=== PATIENT | female | born 1965 | race Caucasian/White ===

== ENCOUNTER 2018-05-21 22:57 | Inpatient (IN) | payer OTHER ==
--- NOTE | 2018-05-21 23:57 | EKG REPORT ---
SEVERITY:- BORDERLINE ECG - SINUS TACHYCARDIA BORDERLINE T WAVE ABNORMALITIES : Confirmed by: Jose M Pinedo 21-May-2018 23:56:58
[2018-05-22] MEDS ORDERED: NORMAL SALINE 1000 ML 1,000 ML IV ONE (00:36)
--- NOTE | 2018-05-22 00:38 | ER Document Report ---
ED General - General Chief Complaint: Shortness Of Breath Stated Complaint: DIFFICULTY BREATHING/URINARY ISSUE Time Seen by Provider: 05/22/18 00:21 Notes: Patient is a 53-year-old female with COPD, diabetes, hypertension that presents to the emergency department for chief complaint of fever, chills, and concern for UTI. Patient states that she is visiting from out of town, and states starting having chills, sweats and subjective fever, which she usually gets when she has a urinary tract infection, she states she is been septic before, r equired hospitalization, in the past. She is on suppressive medication for UTIs, which she states has reduce the number of severe infection she gets, but she still gets some. She has had urinary frequency, but denies any dysuria. She denies having any abdominal pain, has had mild nausea without vomiting. She is chronically short of breath and on oxygen 2 L 24 hours a day for her COPD, but her shortness of breath is not worsened anytime recently. Denies having any cough, chest pain. Past Medical History: COPD, hypertension, diabetes mellitus Past Surgical History: Kidney surgery, hysterectomy, , cholecystectomy Social History: Former smoker, denies alcohol or drug use. Family History: Reviewed and noncontributory for presenting illness Allergies: Reviewed, see documented allergy list. REVIEW OF SYSTEMS: Other than noted above, the 12 point review of systems was reviewed with the patient and were negative, all pertinent findings are included in the HPI. PHYSICAL EXAMINATION: Vital signs reviewed, nursing noted reviewed. GENERAL: Obese female, appears uncomfortable HEAD: Atraumatic, normocephalic. EYES: Eyes appear normal, extraocular movements intact, sclera anicteric, conjunctiva are normal. ENT: nares patent, oropharynx clear without exudates. Moist mucous membranes. NECK: Normal range of motion, supple without lymphadenopathy LUNGS: Diminished lung sounds, no wheezing, rhonchi or acute respiratory distress. HEART: Heart rate tachycardic, regular rhythm ABDOMEN: Soft, obese, nontender, normoactive bowel sounds. No rebound, guarding, or rigidity. No masses appreciated. EXTREMITIES: Nontender, good range of motion, trace pedal edema bilaterally NEUROLOGICAL: No focal neurological deficits. Moves all extremities spontaneously Motor and sensory grossly intact on exam. PSYCH: Normal mood, normal affect. SKIN: Warm, Dry, normal turgor, no rashes or lesions noted on exposed skin TRAVEL OUTSIDE OF THE [place] IN LAST 30 DAYS: No - Related Data Allergies/Adverse Reactions: No Known Allergies Allergy (Verified 05/22/18 01:25) Past Medical History - Social History Smoking Status: Former Smoker Family History: Reviewed & Not Pertinent Physical Exam - Vital signs Vitals: Temp Pulse Resp BP Pulse Ox 100.3 F 131 H 24 H 132/63 H 95 05/21/18 23:06 05/21/18 23:06 05/21/18 23:06 05/21/18 23:06 05/21/18 23:06 Course - Re-evaluation Re-evalutation: Patient seen and examined vital signs reviewed. Laboratory data and imaging were ordered as appropriate for the patient's presenting symptoms and complaint, with consideration of any critical or life threatening conditions that may be associated with their obtained history and exam as noted above. Patient was treated with IV fluid bolusing, IV Zosyn Results were reviewed when available and demonstrated mild leukocytosis, elevated lactic acid, and positive UA for urinary tract infection, chest x-ray was not convincing of pneumonia. Patient did meet severe sepsis criteria based on elevated lactic acid, tachycardia, and source of UTI. The patient was re-evaluated and was still tachycardic, additional IV fluid was ordered, patient's IV fluids were based off of ideal body weight, to obtain her 30 mL/kg bolus, given that she is morbidly obese. Evaluation was most consistent with sepsis secondary to urinary tract infection, tachycardia, leukocytosis Results were discussed with the patient at this point after careful consideration I feel that that patient should be admitted to the hospital. This was discussed with the patient that it is in the best interest for their care to be admitted for further evaluation and management. Patient agreed with this plan of care. A call was placed to the admitted physician, Dr. Alegre who graciously accepted the patient onto their service. *Note is created using voice recognition software and may contain spelling, s yntax or grammatical errors. Laboratory 05/22/18 05/22/18 05/22/18 00:30 00:30 00:30 WBC 10.9 H RBC 4.40 Hgb 12.6 Hct 38.3 MCV 87 MCH 28.7 MCHC 33.0 RDW 13.8 Plt Count 305 Seg Neutrophils % 78.8 H Lymphocytes % 14.5 Monocytes % 5.8 Eosinophils % 0.7 Basophils % 0.2 Absolute Neutrophils 8.6 H Absolute Lymphocytes 1.6 Absolute Monocytes 0.6 Absolute Eosinophils 0.1 Absolute Basophils 0.0 PT 14.0 INR 1.03 VBG pH VBG pCO2 VBG HCO3 VBG Base Excess Sodium 135.7 L Potassium 4.0 Chloride 97 L Carbon Dioxide 25 Anion Gap 14 BUN 13 Creatinine 0.77 Est GFR ( Amer) > 60 Est GFR (Non-Af Amer) > 60 Glucose 346 H POC Glucose Lactic Acid Calcium 10.0 Total Bilirubin 0.3 Direct Bilirubin 0.3 Neonat Total Bilirubin Not Reportable Neonat Direct Bilirubin Not Reportable Neonat Indirect Bili Not Reportable AST 41 H ALT 30 Alkaline Phosphatase 77 Total Protein 7.6 Albumin 4.3 Urine Color Urine Appearance Urine pH Ur Specific [place] Urine Protein Urine Glucose (UA) Urine Ketones Urine Blood Urine Nitrite Urine Bilirubin Urine Urobilinogen Ur Leukocyte Esterase Urine WBC (Auto) Urine RBC (Auto) Urine Bacteria (Auto) Squamous Epi Cells Auto Urine Ascorbic Acid 05/22/18 05/22/18 05/22/18 00:30 00:30 00:30 WBC RBC Hgb Hct MCV MCH MCHC RDW Plt Count Seg Neutrophils % Lymphocytes % Monocytes % Eosinophils % Basophils % Absolute Neutrophils Absolute Lymphocytes Absolute Monocytes Absolute Eosinophils Absolute Basophils PT INR VBG pH 7.40 VBG pCO2 38.6 VBG HCO3 23.4 VBG Base Excess -1.2 Sodium Potassium Chloride Carbon Dioxide Anion Gap BUN Creatinine Est GFR ( Amer) Est GFR (Non-Af Amer) Glucose POC Glucose Lactic Acid 4.0 H Calcium Total Bilirubin Direct Bilirubin Neonat Total Bilirubin Neonat Direct Bilirubin Neonat Indirect Bili AST ALT Alkaline Phosphatase Total Protein Albumin Urine Color YELLOW Urine Appearance SLIGHTLY-CLOUDY Urine pH 6.0 Ur Specific [place] 1.012 Urine Protein NEGATIVE Urine Glucose (UA) >=500 H Urine Ketones NEGATIVE Urine Blood MODERATE H Urine Nitrite NEGATIVE Urine Bilirubin NEGATIVE Urine Urobilinogen NEGATIVE Ur Leukocyte Esterase LARGE H Urine WBC (Auto) 145 Urine RBC (Auto) 19 Urine Bacteria (Auto) 1+ Squamous Epi Cells Auto 1 Urine Ascorbic Acid NEGATIVE 05/22/18 01:02 WBC RBC Hgb Hct MCV MCH MCHC RDW Plt Count Seg Neutrophils % Lymphocytes % Monocytes % Eosinophils % Basophils % Absolute Neutrophils Absolute Lymphocytes Absolute Monocytes Absolute Eosinophils Absolute Basophils PT INR VBG pH VBG pCO2 VBG HCO3 VBG Base Excess Sodium Potassium Chloride Carbon Dioxide Anion Gap BUN Creatinine Est GFR ( Amer) Est GFR (Non-Af Amer) Glucose POC Glucose 303 H Lactic Acid Calcium Total Bilirubin Direct Bilirubin Neonat Total Bilirubin Neonat Direct Bilirubin Neonat Indirect Bili AST ALT Alkaline Phosphatase Total Protein Albumin Urine Color Urine Appearance Urine pH Ur Specific [place] Urine Protein Urine Glucose (UA) Urine Ketones Urine Blood Urine Nitrite Urine Bilirubin Urine Urobilinogen Ur Leukocyte Esterase Urine WBC (Auto) Urine RBC (Auto) Urine Bacteria (Auto) Squamous Epi Cells Auto Urine Ascorbic Acid Chest X-Ray 05/22/18 00:25 IMPRESSION: No acute cardiopulmonary process copyright 2010 [employer]- All Rights Reserved - Vital Signs Vital signs: Temp Pulse Resp BP Pulse Ox 98.6 F 105 H 22 H 117/66 98 05/22/18 03:38 05/22/18 03:38 05/22/18 03:38 05/22/18 03:38 05/22/18 03:38 - Laboratory Result Diagrams: 05/22/18 00:30 05/22/18 00:30 Laboratory results interpreted by me: 05/22/18 05/22/18 05/22/18 00:30 00:30 00:30 WBC 10.9 H Seg Neutrophils % 78.8 H Absolute Neutrophils 8.6 H Sodium 135.7 L Chloride 97 L Glucose 346 H POC Glucose Lactic Acid 4.0 H AST 41 H Urine Glucose (UA) Urine Blood Ur Leukocyte Esterase 05/22/18 05/22/18 00:30 01:02 WBC Seg Neutrophils % Absolute Neutrophils Sodium Chloride Glucose POC Glucose 303 H Lactic Acid AST Urine Glucose (UA) >=500 H Urine Blood MODERATE H Ur Leukocyte Esterase LARGE H - EKG Interpretation by Me Additional EKG results interpreted by me: EKG demonstrates sinus tachycardia with a ventricular rate of 127 bpm, normal axis, normal intervals, no evidence of acute ischemia on this EKG. Critical Care Note - Critical Care Note Total time excluding time spent on procedures (mins): 38 Comments: Critical care time 38 minutes exclusive from separate billable procedures for a patient requiring complex medical decision making, and high potential for clinical deterioration. In a patient with severe sepsis, requiring fluid resuscitation, close monitoring and admission to the hospital. Time spent obtai maximilian history from patient or surrogate, discussions with consultants, development of treatment plan with patient or surrogate, evaluation of patient's response to treatment, examination of patient, ordering and performing treatments and interventions, ordering and review of laboratory studies, re-ev aluation of patient's condition, ordering and review of radiographic studies and review of old charts Discharge - Discharge Clinical Impression: Severe sepsis, Lactic acidosis UTI (urinary tract infection) Qualifiers: Urinary tract infection type: acute pyelonephritis Qualified Code(s): N10 - Acute pyelonephritis Leukocytosis Qualifiers: Leukocytosis type: unspecified Qualified Code(s): D72.829 - Elevated white blood cell count, unspecified Condition: Stable Disposition: ADMITTED INPATIENT Admitting Provider: Hospitalist - Dr. Alegre Unit Admitted: Telemetry
[2018-05-22 00:49] LABS: ABSOLUTE EOSINOPHILS # (AUTO) 0.1 10^3/uL (0.0-0.6); ABSOLUTE LYMPHOCYTES (AUTO) 1.6 10^3/uL (0.5-4.7); ABSOLUTE MONOCYTES (AUTO) 0.6 10^3/uL (0.1-1.4); ABSOLUTE NEUT (AUTO) 8.6 10^3/uL (1.7-8.2); BASOPHILS % (AUTO) 0.2 % (0-2); EOSINOPHILS % (AUTO) 0.7 % (0-6); HEMATOCRIT 38.3 % (36.0-47.0); HEMOGLOBIN 12.6 g/dL (12.0-15.5); LYMPHOCYTES % (AUTO) 14.5 % (13-45); MEAN CORPUSCULAR HEMOGLOBIN 28.7 pg (27.0-33.4); MEAN CORPUSCULAR VOLUME 87 fl (80-97); MONOCYTES % (AUTO) 5.8 % (3-13); PLATELET COUNT 305 10^3/uL (150-450); RED CELL DISTRIBUTION WIDTH 13.8 % (11.5-14.0); SEGMENTED NEUTROPHILS % (AUTO) 78.8 % (42-78); TOTAL CELLS COUNTED % (AUTO) 100 %; VENOUS BLOOD BASE EXCESS -1.2 mmol/L; VENOUS BLOOD HCO3 23.4 mmol/L (20-32); VENOUS BLOOD PCO2 38.6 mmHg (35-63); VENOUS BLOOD PH 7.4 (7.30-7.42); WHITE BLOOD COUNT 10.9 10^3/uL (4.0-10.5)
[2018-05-22 00:55] LABS: INTERNATIONAL RATION (INR) 1.03
[2018-05-22 00:58] LABS: APPEARANCE,URINE SLIGHTLY-CLOUDY; BILIRUBIN,URINE NEGATIVE (NEGATIVE); COLOR,URINE YELLOW; GLUCOSE, URINE >=500 mg/dL (NEGATIVE); KETONES,URINE NEGATIVE (NEGATIVE); LEUKOCYTE ESTERASE,URINE LARGE (NEGATIVE); NITRITE,URINE NEGATIVE (NEGATIVE); PROTEIN,URINE NEGATIVE (NEGATIVE); URINE SPECIFIC GRAVITY 1.012; UROBILINOGEN,URINE NEGATIVE mg/dL (<2.0)
[2018-05-22 01:05] LABS: ALANINE AMINOTRANSFERASE 30 U/L (9-52); ALBUMIN 4.3 g/dL (3.5-5.0); ALKALINE PHOSPHATASE 77 U/L (38-126); ANION GAP 14 (5-19); ASPARTATE AMINO TRANSFERASE 41 U/L (14-36); BILIRUBIN,DIRECT 0.3 mg/dL (0.0-0.4); BILIRUBIN,TOTAL 0.3 mg/dL (0.2-1.3); BLOOD UREA NITROGEN 13 mg/dL (7-20); CARBON DIOXIDE 25 mmol/L (22-30); CHLORIDE 97 mmol/L (98-107); GLUCOSE 346 mg/dL (75-110); SODIUM 135.7 mmol/L (137-145); TOTAL PROTEIN 7.6 g/dL (6.3-8.2)
--- NOTE | 2018-05-22 01:06 | RADIOLOGY REPORT (SQ) ---
EXAM DESCRIPTION: XR CHEST 1 VIEW COMPLETED DATE/TME: 05/22/2018 00:25 CLINICAL HISTORY: 53 years, Female, SHORT OF BREATH, TACHYCARDIA COMPARISON: None. NUMBER OF VIEWS: 1 TECHNIQUE: Portable chest LIMITATIONS: None. FINDINGS: The heart size is normal. Osteopenia. Mild atheromatous change thoracic aorta. No pneumothorax. Lungs are clear IMPRESSION: No acute cardiopulmonary process copyright 2010 [employer]- All Rights Reserved
[2018-05-22] MEDS ORDERED: RINGERS SOLUTION,LACTATED 1,000 ML IV ONE ×2 (01:14)
[2018-05-22] MEDS ORDERED: PIPERACILLIN/TAZOBACTAM 3.375 GM VIAL IV ONE (01:15)
[2018-05-22] MEDS ORDERED: ACETAMINOPHEN 650 MG SUPP.RECT PR PRN (02:32)
[2018-05-22] MEDS ORDERED: MORPHINE SULFATE 10 MG/ML INJ IV PRN ×2 (02:32)
[2018-05-22] MEDS ORDERED: MAGNESIUM HYDROXIDE SUSP 30 ML UDCUP PO PRN (02:33)
[2018-05-22] MEDS ORDERED: ONDANSETRON 4 MG TAB.RAPDIS PO PRN (02:33)
[2018-05-22] MEDS ORDERED: POTASSI CL 20 MEQ/D5-1/2NS 1L 1,000 ML IV PRN (02:33)
[2018-05-22] MEDS ORDERED: MAG HYDROX/AL HYDROX/SIMETH SUSP 30 ML UDCUP PO PRN (02:33)
[2018-05-22] MEDS ORDERED: ONDANSETRON HCL INJ/PF 4 MG/2 ML SDV IV PRN (02:33)
[2018-05-22] MEDS ORDERED: POTASSI CL 20 MEQ/1/2NS 1L 20 MEQ/1,000 ML RTUINJ IV PRN (02:42)
[2018-05-22] MEDS ORDERED: ERTAPENEM SODIUM INJ 1 GM VIAL IV PRN (03:00)
[2018-05-22] MEDS ORDERED: ERTAPENEM SODIUM 1 GM in NORMAL SALINE 50 ML IV ONE (03:00)
[2018-05-22 04:10] LABS: FREE T3 3.01 pg/mL (2.77-5.27); FREE T4 (FREE THYROXINE) 1.06 ng/dL (0.78-2.19)
[2018-05-22] MEDS ORDERED: ERTAPENEM SODIUM INJ 1 GM VIAL ONE (04:56)
[2018-05-22] MEDS: HEPARIN SOD (PORCINE) 5,000 UNIT/ML 1 ML SYRINGE SUBCUT SCH ×3 (05:21→21:20)
--- NOTE | 2018-05-22 05:22 | PDOC H&P ---
History of Present Illness Admission Date/PCP: 05/22/18 01:47 Patient complains of: Fever and chills History of Present Illness: MIGUELITO LOVETT is a 53 year old female who presents the emergency room with a 1 day history of fever with chills associated with lower back pain. Subjective fever with chills has been severe and the lumbar (vague, nonradiating, bilateral right possibly worse than left) pressure-like pain which she rates as very severe. Both the pain and fever have been present since their onset on the day prior to admission. The symptoms began as a backache and low-grade fever in the early afternoon and progressively worsened gradually throughout the evening until she came to the emergency room. She admits numerous prior similar episodes some of which have required hospitalization and treatment for "sepsis", these usually occur with urinary tract or respiratory tract infections. She has not identified any aggravating or ameliorating factors for her fever or back pain. In the emergency room she was found to have a normal white count and be afebrile. Her urinalysis was suspect for a urinary tract infection and she was about to be discharged home when her serum lactic acid was reported is 4.0. The patient was then admitted to the hospital to be evaluated for possible sepsis at the insistence of the emergency room physician. Past Medical History Cardiac Medical History: Reports: Coronary Artery Disease, Myocardial Infarction, Hyperlipidema, Hypertension Denies: DVT, Pulmonary Embolism Pulmonary Medical History: Reports: Bronchitis, Pneumonia Denies: Chronic Obstructive Pulmonary Disease (COPD) EENT Medical History: Reports: None Neurological Medical History: Denies: Hemorrhagic CVA, Ischemic CVA, Seizures Endocrine Medical History: Reports: Diabetes Mellitus Type 2, Obesity Renal/ Medical History: Reports: Other - Frequent urinary tract infections, hx of horseshoe kidney (non-unified) Denies: Chronic Kidney Disease, Nephrolithiasis Malignancy Medical History: Reports: Other - Uterine cancer GI Medical History: Denies: Cirrhosis, Hepatitis Musculoskeltal Medical History: Denies: Arthritis, Gout Skin Medical History: Denies: Eczema, Psoriasis Psychiatric Medical History: Denies: Alcohol Dependency, Substance Abuse, Tobacco Dependency Traumatic Medical History: Reports: None Hematology: Denies: Anemia, Bleeding Tendencies Infectious Medical History: Reports: None Past Surgical History Past Surgical History: Reports: Section, Cholecystectomy, Hysterectomy Social History Smoking Status: Former Smoker - Advance Directive Resuscitation Status: Full Code Surrogate healthcare decision maker:: Hilda Cordova Family History Family History: Hypertension, Malignancy Parental Family History Reviewed: Yes Children Family History Reviewed: No Sibling(s) Family History Reviewed.: Yes Medication/Allergy Allergies/Adverse Reactions: No Known Allergies Allergy (Verified 05/22/18 01:25) Review of Systems Constitutional: PRESENT: as per HPI, chills, fever(s) Eyes: ABSENT: visual disturbances, other - Ocular pain Ears: ABSENT: hearing changes, other - Ear pain Nose, Mouth, and Throat: ABSENT: mouth pain, sore throat Cardiovascular: ABSENT: chest pain, dyspnea on exertion, orthropnea, palpitations Respiratory: ABSENT: cough, dyspnea Gastrointestinal: ABSENT: abdominal pain, constipation, diarrhea, nausea, vomiting Genitourinary: PRESENT: as per HPI, other - Flank pain, foul-smelling urine. ABSENT: dysuria, hematuria Musculoskeletal: PRESENT: as per HPI, back pain. ABSENT: deformity, joint swelling Integumentary: ABSENT: pruritus, rash Neurological: ABSENT: confusion, convulsions, memory loss, syncope, vertigo Psychiatric: ABSENT: anxiety, depression Endocrine: ABSENT: cold intolerance, heat intolerance Hematologic/Lymphatic: ABSENT: easy bleeding, easy bruising Physical Exam Vital Signs: Temp Pulse Resp BP Pulse Ox 98.4 F 131 H 19 134/67 H 97 05/22/18 00:40 05/21/18 23:06 05/22/18 02:01 05/22/18 02:01 05/22/18 02:01 Intake & Output 05/20/18 05/21/18 05/22/18 23:59 23:59 23:59 Intake Total 1000 Balance 1000 Weight 119.8 kg General appearance: PRESENT: no acute distress, cooperative, morbidly obese Head exam: PRESENT: atraumatic, normocephalic Eye exam: PRESENT: EOMI. ABSENT: conjunctival injection, scleral icterus Ear exam: PRESENT: normal external ear exam. ABSENT: bleeding, drainage Mouth exam: PRESENT: dry mucosa, neck supple Neck exam: ABSENT: thyromegaly, tracheal deviation Respiratory exam: PRESENT: clear to auscultation radha, symmetrical, unlabored Cardiovascular exam: PRESENT: RRR. ABSENT: clicks, gallop, rubs Pulses: PRESENT: normal radial pulses, normal dorsalis pedis pul Vascular exam: PRESENT: normal capillary refill. ABSENT: pallor GI/Abdominal exam: PRESENT: normal bowel sounds, soft Rectal exam: PRESENT: deferred Extremities exam: ABSENT: joint swelling, pedal edema Musculoskeletal exam: ABSENT: deformity, dislocation, tenderness Neurological exam: PRESENT: alert, oriented to person, oriented to place, oriented to time, oriented to situation, CN II-XII grossly intact. ABSENT: motor sensory deficit Psychiatric exam: PRESENT: appropriate affect, normal mood Skin exam: PRESENT: dry, intact, warm. ABSENT: jaundice, pallor, rash, urticaria Results Laboratory Results: 05/22/18 00:30 05/22/18 00:30 05/22/18 05/22/18 05/22/18 00:30 00:30 00:30 WBC 10.9 H RBC 4.40 Hgb 12.6 Hct 38.3 MCV 87 MCH 28.7 MCHC 33.0 RDW 13.8 Plt Count 305 Seg Neutrophils % 78.8 H Lymphocytes % 14.5 Monocytes % 5.8 Eosinophils % 0.7 Basophils % 0.2 Absolute Neutrophils 8.6 H Absolute Lymphocytes 1.6 Absolute Monocytes 0.6 Absolute Eosinophils 0.1 Absolute Basophils 0.0 VBG pH VBG pCO2 VBG HCO3 VBG Base Excess Sodium 135.7 L Potassium 4.0 Chloride 97 L Carbon Dioxide 25 Anion Gap 14 BUN 13 Creatinine 0.77 Est GFR ( Amer) > 60 Est GFR (Non-Af Amer) > 60 Glucose 346 H Lactic Acid 4.0 H Calcium 10.0 Total Bilirubin 0.3 AST 41 H ALT 30 Alkaline Phosphatase 77 Total Protein 7.6 Albumin 4.3 Urine Color Urine Appearance Urine pH Ur Specific [place] Urine Protein Urine Glucose (UA) Urine Ketones Urine Blood Urine Nitrite Ur Leukocyte Esterase Urine WBC (Auto) Urine RBC (Auto) 05/22/18 05/22/18 00:30 00:30 WBC RBC Hgb Hct MCV MCH MCHC RDW Plt Count Seg Neutrophils % Lymphocytes % Monocytes % Eosinophils % Basophils % Absolute Neutrophils Absolute Lymphocytes Absolute Monocytes Absolute Eosinophils Absolute Basophils VBG pH 7.40 VBG pCO2 38.6 VBG HCO3 23.4 VBG Base Excess -1.2 Sodium Potassium Chloride Carbon Dioxide Anion Gap BUN Creatinine Est GFR ( Amer) Est GFR (Non-Af Amer) Glucose Lactic Acid Calcium Total Bilirubin AST ALT Alkaline Phosphatase Total Protein Albumin Urine Color YELLOW Urine Appearance SLIGHTLY-CLOUDY Urine pH 6.0 Ur Specific [place] 1.012 Urine Protein NEGATIVE Urine Glucose (UA) >=500 H Urine Ketones NEGATIVE Urine Blood MODERATE H Urine Nitrite NEGATIVE Ur Leukocyte Esterase LARGE H Urine WBC (Auto) 145 Urine RBC (Auto) 19 Impressions: Chest X-Ray 05/22/18 00:25 IMPRESSION: No acute cardiopulmonary process copyright 2010 [employer]- All Rights Reserved Assessment & Plan - Diagnosis (1) SIRS (systemic inflammatory response syndrome) Is this a current diagnosis for this admission?: Yes Plan: With lactic acidosis, mild leukocytosis, minimal tachycardia and a possible urinary tract infection, SIRS criteria have been met. However this patient is very unlikely to have sepsis, so much so that at this point it can be affirmatively stated that sepsis has been ruled out. She will be treated with broad-spectrum antibiotics for her role urinary tract infection and serial lactic acid measurements will be obtained her vital signs will be observed and her overall clinical course will be monitored. Serial laboratory evaluations of her metabolic profile and CBC will be obtained. (2) UTI (urinary tract infection) Qualifiers: Urinary tract infection type: acute pyelonephritis Qualified Code(s): N10 - Acute pyelonephritis Is this a current diagnosis for this admission?: Yes Plan: Patient was noted to have acute right CVA tenderness far greater than the left giving suspicion to a distinct possibility of an acute right pyelonephritis. Her urine does show significant pyuria based on her positive leukocyte esterase however a moderately positive blood chemical reaction is not necessarily indicative of hematuria. She will be treated with broad-spectrum antibiotics until urine culture results are available and spectrum of the antibiotic therapy can be narrowed as appropriate. (3) Diabetes mellitus type 2 in obese Is this a current diagnosis for this admission?: Yes Plan: Patient will be treated with her usual diabetic therapy with the addition of a sliding scale insulin coverage for hyperglycemia. Hemoglobin A1c will be obtained to assess the efficacy of the prior therapy and adjustments will be made as appropriate. (4) HTN (hypertension) Qualifiers: Hypertension type: essential hypertension Qualified Code(s): I10 - Essent ial (primary) hypertension Is this a current diagnosis for this admission?: Yes Plan: Patient will be continued on her current antihypertensive regiment once her home meds have been established. Efficacy of this therapy will be assessed over hospital course with serial evaluations of her vital signs including blood pressure. (5) Morbid obesity with BMI of 45.0-49.9, adult Is this a current diagnosis for this admission?: Yes Plan: Patient will be evaluated by dietitian for instruction in weight loss diet, improved diabetic control and lifestyle changes to assist the patient in maintaining a long-term improvement in her health via a long-term weight loss and diabetic diet management plan. - Time Time Spent: 30 to 50 Minutes Critical Time spent with patient: Less than 15 minutes Medications reviewed and adjusted accordingly: Yes - Patient has some difficulty remembering her medications. Anticipated discharge: Home, Home with Homehealth - Inpatient Certification Based on my medical assessment, after consideration of the patient's comorbidities, presenting symptoms, or acuity I expect that the services needed warrant INPATIENT care.: Yes I certify that my determination is in accordance with my understanding of Medicare's requirements for reasonable and necessary INPATIENT services [42 CFR 412.3e].: Yes Medical Necessity: Significant Comorbidiites Make Outpatient Treatment Too Risky, Need Close Monitoring Due to Risk of Patient Decompensation, Need for IV Antibiotics
[2018-05-22] MEDS: ACETAMINOPHEN 325 MG TABLET PO PRN ×2 (06:21→21:24)
[2018-05-22] MEDS ORDERED: GLUCAGON,HUMAN RECOMB 1 MG INJ IM PRN (08:55)
[2018-05-22] MEDS ORDERED: DEXTROSE 50%-WATER 25 GM/50 ML DISP.SYRIN IV PRN ×2 (08:55)
[2018-05-22] MEDS ORDERED: DEXTROSE 40% GEL 15 GM TUBE PO PRN ×2 (08:55)
[2018-05-22] MEDS: MORPHINE SULFATE 10 MG/ML INJ IV PRN ×2 (09:01→16:16)
--- NOTE | 2018-05-22 09:05 | PDOC PROGRESS REPORT ---
Subjective Progress Note for:: 05/22/18 Subjective:: 53-year-old female admitted for fever and chills initially lactic acid was high 4.0 improved to 2.2 today at the time of admission she is also have a subjective fever tachycardia with heart rate of 105 elevated lactic acid levels meeting the criteria for Sirs. No acute events in the last 24 hours. T-max is 99.6. Reason For Visit: SIRS SYNDROME WITH PROBABLE URINARY TRACT Physical Exam Vital Signs: Temp Pulse Resp BP Pulse Ox 99.6 F 99 19 120/66 96 05/22/18 07:57 05/22/18 07:57 05/22/18 07:57 05/22/18 07:57 05/22/18 07:57 Intake & Output 05/21/18 05/22/18 05/23/18 06:59 06:59 06:59 Intake Total 3494 Balance 3494 Weight 123.8 kg General appearance: PRESENT: other - Morbidly obese female with a BMI of more than 50. Eye exam: PRESENT: PERRLA Mouth exam: PRESENT: moist Neck exam: ABSENT: carotid bruit, JVD, lymphadenopathy, thyromegaly Respiratory exam: PRESENT: clear to auscultation radha. ABSENT: rales, rhonchi, wheezes Cardiovascular exam: PRESENT: tachycardia GI/Abdominal exam: PRESENT: normal bowel sounds, soft. ABSENT: distended, gu arding, mass, organolmegaly, rebound, tenderness Extremities exam: PRESENT: full ROM. ABSENT: calf tenderness, clubbing, pedal edema Neurological exam: PRESENT: alert, awake, oriented to person, oriented to place, oriented to time, oriented to situation, CN II-XII grossly intact. ABSENT: motor sensory deficit Results Laboratory Results: 05/22/18 00:30 05/22/18 00:30 05/22/18 05/22/18 05/22/18 00:30 00:30 00:30 WBC 10.9 H RBC 4.40 Hgb 12.6 Hct 38.3 MCV 87 MCH 28.7 MCHC 33.0 RDW 13.8 Plt Count 305 Seg Neutrophils % 78.8 H Lymphocytes % 14.5 Monocytes % 5.8 Eosinophils % 0.7 Basophils % 0.2 Absolute Neutrophils 8.6 H Absolute Lymphocytes 1.6 Absolute Monocytes 0.6 Absolute Eosinophils 0.1 Absolute Basophils 0.0 VBG pH VBG pCO2 VBG HCO3 VBG Base Excess Sodium 135.7 L Potassium 4.0 Chloride 97 L Carbon Dioxide 25 Anion Gap 14 BUN 13 Creatinine 0.77 Est GFR ( Amer) > 60 Est GFR (Non-Af Amer) > 60 Glucose 346 H Lactic Acid 4.0 H Calcium 10.0 Total Bilirubin 0.3 AST 41 H ALT 30 Alkaline Phosphatase 77 Total Protein 7.6 Albumin 4.3 Free T4 Free T3 pg/mL Urine Color Urine Appearance Urine pH Ur Specific [place] Urine Protein Urine Glucose (UA) Urine Ketones Urine Blood Urine Nitrite Ur Leukocyte Esterase Urine WBC (Auto) Urine RBC (Auto) 05/22/18 05/22/18 05/22/18 00:30 00:30 00:30 WBC RBC Hgb Hct MCV MCH MCHC RDW Plt Count Seg Neutrophils % Lymphocytes % Monocytes % Eosinophils % Basophils % Absolute Neutrophils Absolute Lymphocytes Absolute Monocytes Absolute Eosinophils Absolute Basophils VBG pH 7.40 VBG pCO2 38.6 VBG HCO3 23.4 VBG Base Excess -1.2 Sodium Potassium Chloride Carbon Dioxide Anion Gap BUN Creatinine Est GFR ( Amer) Est GFR (Non-Af Amer) Glucose Lactic Acid Calcium Total Bilirubin AST ALT Alkaline Phosphatase Total Protein Albumin Free T4 1.06 Free T3 pg/mL 3.01 Urine Color YELLOW Urine Appearance SLIGHTLY-CLOUDY Urine pH 6.0 Ur Specific [place] 1.012 Urine Protein NEGATIVE Urine Glucose (UA) >=500 H Urine Ketones NEGATIVE Urine Blood MODERATE H Urine Nitrite NEGATIVE Ur Leukocyte Esterase LARGE H Urine WBC (Auto) 145 Urine RBC (Auto) 19 05/22/18 04:22 WBC RBC Hgb Hct MCV MCH MCHC RDW Plt Count Seg Neutrophils % Lymphocytes % Monocytes % Eosinophils % Basophils % Absolute Neutrophils Absolute Lymphocytes Absolute Monocytes Absolute Eosinophils Absolute Basophils VBG pH VBG pCO2 VBG HCO3 VBG Base Excess Sodium Potassium Chloride Carbon Dioxide Anion Gap BUN Creatinine Est GFR ( Amer) Est GFR (Non-Af Amer) Glucose Lactic Acid 2.2 H Calcium Total Bilirubin AST ALT Alkaline Phosphatase Total Protein Albumin Free T4 Free T3 pg/mL Urine Color Urine Appearance Urine pH Ur Specific [place] Urine Protein Urine Glucose (UA) Urine Ketones Urine Blood Urine Nitrite Ur Leukocyte Esterase Urine WBC (Auto) Urine RBC (Auto) Impressions: Chest X-Ray 05/22/18 00:25 IMPRESSION: No acute cardiopulmonary process copyright 2011 [employer]- All Rights Reserved Assessment & Plan - Diagnosis (1) SIRS (systemic inflammatory response syndrome) Is this a current diagnosis for this admission?: Yes Plan: With lactic acidosis, mild leukocytosis, minimal tachycardia and a possible urinary tract infection, SIRS criteria have been met. However this patient is very unlikely to have sepsis, so much so that at this point it can be affirmatively stated that sepsis has been ruled out. She will be treated with broad-spectrum antibiotics for her role urinary tract infection and serial lactic acid measurements will be obtained her vital signs will be observed and her overall clinical course will be monitored. Serial laboratory evaluations of her metabolic profile and CBC will be obtained. 05/22/2018-temperature today is 99.6. Patient is on Invanz. Lactic acid level came down to 2.2. We are going to continue to follow the CBC and chemistry. Cultures urine cultures are pending. Plan is to continue the present manag ement. (2) UTI (urinary tract infection) Qualifiers: Urinary tract infection type: acute pyelonephritis Qualified Code(s): N10 - Acute pyelonephritis Is this a current diagnosis for this admission?: Yes Plan: Patient was noted to have acute right CVA tenderness far greater than the left giving suspicion to a distinct possibility of an acute right pyelonephritis. Her urine does show significant pyuria based on her positive leukocyte esterase however a moderately positive blood chemical reaction is not necessarily indicative of hematuria. She will be treated with broad-spectrum antibiotics until urine culture results are available and spectrum of the antibiotic therapy can be narrowed as appropriate. 05/22/2018-on examination there is no right CVA tenderness. Urinalysis shows pyuria with positive leukocyte esterase. Cultures are pending. Patient is on broad-spectrum antibiotics. Is to continue the present management and wait for the urine cultures. (3) Diabetes mellitus type 2 in obese Is this a current diagnosis for this admission?: Yes Plan: Patient will be treated with her usual diabetic therapy with the addition of a sliding scale insulin coverage for hyperglycemia. Hemoglobin A1c will be obtained to assess the efficacy of the prior therapy and adjustments will be made as appropriate. 05/22/2018-started on insulin sliding scale. Blood sugars are 253 today. Patient is on metformin at home. We are going to hold metformin. Patient is also on Victoza. We are going to hold Victoza during this hospital stay. Hemoglobin A1c is pending. (4) HTN (hypertension) Qualifiers: Hypertension type: essential hypertension Qualified Code(s): I10 - Essential (primary) hypertension Is this a current diagnosis for this admission?: Yes Plan: Patient will be continued on her current antihypertensive regiment once her home meds have been established. Efficacy of this therapy will be assessed over hospital course with serial evaluations of her vital signs including blood pressure. 05/22/2018 blood pressure is 120/66. Plan for today is to discontinue IV fluids and restart on losartan. pT is on 50 mg of losartan daily at home. (5) Morbid obesity with BMI of 45.0-49.9, adult Is this a current diagnosis for this admission?: Yes Plan: 05/22/2018-diet exercise weight loss and lifestyle modifications are advised. Dietary consult was requested. BMI is more than 50. - Time Time Spent with patient: 15-24 minutes Medications reviewed and adjusted accordingly: Yes Anticipated discharge: Home
[2018-05-22] MEDS ORDERED: LOSARTAN POTASSIUM 50 MG TABLET PO SCH (10:00)
[2018-05-22] MEDS: FAMOTIDINE 20 MG TABLET PO SCH ×2 (11:12→21:20)
[2018-05-22] MEDS: DOCUSATE SODIUM 100 MG CAPSULE PO SCH ×2 (11:12→18:13)
[2018-05-22] MEDS: INSULIN REG, HUMAN 100 UNIT/ML 3 ML VIAL (PYX) SUBCUT PRN ×2 (11:13→22:50)
[2018-05-22] MEDS ORDERED: (PENDING PHARMACY ID) (Omega-3 Fatty Acids/Fish Oil [Fish Oil 1,000 Mg Capsule] 2 CAP) PO SCH (18:00)
[2018-05-22] MEDS ORDERED: METHENAMINE HIPPURATE 1 GM PO SCH (18:00)
[2018-05-22] MEDS ORDERED: INSULIN GLARGINE,HUM.REC.ANLOG 1,000 UNIT/10 ML UNIT SUBCUT SCH (18:00)
[2018-05-22] MEDS: OMEGA-3 ACID ETHYL ESTERS 1 GM CAPSULE PO SCH (18:13)
[2018-05-22] MEDS: GABAPENTIN 400 MG CAPSULE PO SCH (21:19)
[2018-05-22] MEDS: MELATONIN 5 MG TABLET PO SCH (21:19)
[2018-05-22] MEDS: ASPIRIN 81 MG TABLET, ENT COATED PO SCH (21:19)
[2018-05-22] MEDS: BUPROPION HCL 100 MG TABLET PO SCH (21:20)
[2018-05-22] MEDS: CYCLOBENZAPRINE HCL 10 MG TABLET PO SCH (21:20)
[2018-05-22] MEDS ORDERED: (PENDING PHARMACY ID) (Lovastatin [Mevacor] 20 MG) PO SCH (22:00)
[2018-05-23] MEDS: MORPHINE SULFATE 10 MG/ML INJ IV PRN ×2 (00:20→18:23)
[2018-05-23 05:10] LABS: ABSOLUTE BASOPHILS # (AUTO) 0.1 10^3/uL (0.0-0.2); ABSOLUTE EOSINOPHILS # (AUTO) 0.2 10^3/uL (0.0-0.6); ABSOLUTE LYMPHOCYTES (AUTO) 2.1 10^3/uL (0.5-4.7); ABSOLUTE MONOCYTES (AUTO) 0.5 10^3/uL (0.1-1.4); ABSOLUTE NEUT (AUTO) 4.4 10^3/uL (1.7-8.2); BASOPHILS % (AUTO) 0.9 % (0-2); EOSINOPHILS % (AUTO) 3.1 % (0-6); HEMATOCRIT 32.5 % (36.0-47.0); LYMPHOCYTES % (AUTO) 28.7 % (13-45); MEAN CORPUSCULAR HEMOGLOBIN 28.8 pg (27.0-33.4); MEAN CORPUSCULAR HGB CONC 33.9 g/dL (32.0-36.0); MEAN CORPUSCULAR VOLUME 85 fl (80-97); MONOCYTES % (AUTO) 7.5 % (3-13); PLATELET COUNT 263 10^3/uL (150-450); RED BLOOD COUNT 3.82 10^6/uL (3.72-5.28); RED CELL DISTRIBUTION WIDTH 13.9 % (11.5-14.0); SEGMENTED NEUTROPHILS % (AUTO) 59.8 % (42-78); TOTAL CELLS COUNTED % (AUTO) 100 %; WHITE BLOOD COUNT 7.4 10^3/uL (4.0-10.5)
[2018-05-23 05:27] LABS: ANION GAP 9 (5-19); BLOOD UREA NITROGEN 11 mg/dL (7-20); CALCIUM 8.9 mg/dL (8.4-10.2); CARBON DIOXIDE 29 mmol/L (22-30); CHLORIDE 102 mmol/L (98-107); CHOLESTEROL 107.72 mg/dL (0-200); GLUCOSE 209 mg/dL (75-110); TRIGLYCERIDES 259 mg/dL (<150)
[2018-05-23] MEDS: GABAPENTIN 400 MG CAPSULE PO SCH ×3 (05:37→21:32)
[2018-05-23] MEDS: HEPARIN SOD (PORCINE) 5,000 UNIT/ML 1 ML SYRINGE SUBCUT SCH ×3 (05:37→21:29)
[2018-05-23] MEDS: ERTAPENEM SODIUM 1 GM in NORMAL SALINE 50 ML IV SCH (05:37)
[2018-05-23] MEDS: BUPROPION HCL 100 MG TABLET PO SCH ×3 (05:37→21:32)
[2018-05-23 05:38] LABS: DIRECT LDL 74 mg/dL (<100)
[2018-05-23 05:43] LABS: VLDL CHOLESTEROL 51.8 mg/dL (10-31)
[2018-05-23] MEDS ORDERED: ONDANSETRON HCL INJ/PF 4 MG/2 ML SDV IV PRN (07:30)
[2018-05-23] MEDS ORDERED: (PENDING PHARMACY ID) (Fenofibrate [Fenofibrate] 160 MG) PO SCH (08:00)
[2018-05-23] MEDS: INSULIN REG, HUMAN 100 UNIT/ML 3 ML VIAL (PYX) SUBCUT PRN ×3 (08:36→22:41)
[2018-05-23] MEDS: FENOFIBRATE NANOCRYSTALLIZED 145 MG TABLET PO SCH (08:37)
[2018-05-23] MEDS: LOSARTAN POTASSIUM 50 MG TABLET PO SCH (08:37)
--- NOTE | 2018-05-23 09:34 | PDOC PROGRESS REPORT ---
Subjective Progress Note for:: 05/23/18 Subjective:: 53-year-old female admitted for fever and chills initially lactic acid was high 4.0 improved to 2.2 today at the time of admission she is also have a subjective fever tachycardia with heart rate of 105 elevated lactic acid levels meeting the criteria for Sirs. No acute events in the last 24 hours. T-max is 99.6. 05/23/2018-no acute events in the last 24 hours. Urine culture showing gram- negative rods. T-max is 99.5. Has any complaints. Comfortable in the bed. Reason For Visit: SIRS SYNDROME WITH PROBABLE URINARY TRACT Physical Exam Vital Signs: Temp Pulse Resp BP Pulse Ox 99.5 F 92 16 105/65 97 05/23/18 07:21 05/23/18 07:21 05/23/18 07:21 05/23/18 07:21 05/23/18 07:21 Intake & Output 05/22/18 05/23/18 05/24/18 06:59 06:59 06:59 Intake Total 3494 941 Balance 3494 941 Weight 123.8 kg 123.2 kg General appearance: PRESENT: no acute distress Head exam: PRESENT: atraumatic Eye exam: PRESENT: PERRLA Mouth exam: PRESENT: moist Neck exam: ABSENT: carotid bruit, JVD, lymphadenopathy, thyromegaly Respiratory exam: PRESENT: clear to auscultation radha. ABSENT: rales, rhonchi, wheezes Cardiovascular exam: PRESENT: RRR. ABSENT: diastolic murmur, rubs, systolic murmur GI/Abdominal exam: PRESENT: normal bowel sounds, soft. ABSENT: distended, guarding, mass, organolmegaly, rebound, tenderness Neurological exam: PRESENT: alert, awake, oriented to person, oriented to place, oriented to time, oriented to situation, CN II-XII grossly intact. ABSENT: motor sensory deficit Psychiatric exam: PRESENT: appropriate affect, normal mood. ABSENT: homicidal ideation, suicidal ideation Results Laboratory Results: 05/23/18 04:43 05/23/18 04:43 05/22/18 05/22/18 05/22/18 00:30 10:41 16:10 WBC RBC Hgb Hct MCV MCH MCHC RDW Plt Count Seg Neutrophils % Lymphocytes % Monocytes % Eosinophils % Basophils % Absolute Neutrophils Absolute Lymphocytes Absolute Monocytes Absolute Eosinophils Absolute Basophils Sodium Potassium Chloride Carbon Dioxide Anion Gap BUN Creatinine Est GFR ( Amer) Est GFR (Non-Af Amer) Glucose Lactic Acid 2.1 1.9 Calcium Magnesium Triglycerides Cholesterol LDL Cholesterol Direct VLDL Cholesterol HDL Cholesterol TSH Urine Color YELLOW Urine Appearance SLIGHTLY-CLOUDY Urine pH 6.0 Ur Specific [place] 1.012 Urine Protein NEGATIVE Urine Glucose (UA) >=500 H Urine Ketones NEGATIVE Urine Blood MODERATE H Urine Nitrite NEGATIVE Ur Leukocyte Esterase LARGE H Urine WBC (Auto) 145 Urine RBC (Auto) 19 05/22/18 05/23/18 05/23/18 22:20 04:43 04:43 WBC 7.4 RBC 3.82 Hgb 11.0 L Hct 32.5 L MCV 85 MCH 28.8 MCHC 33.9 RDW 13.9 Plt Count 263 Seg Neutrophils % 59.8 Lymphocytes % 28.7 Monocytes % 7.5 Eosinophils % 3.1 Basophils % 0.9 Absolute Neutrophils 4.4 Absolute Lymphocytes 2.1 Absolute Monocytes 0.5 Absolute Eosinophils 0.2 Absolute Basophils 0.1 Sodium 140.0 Potassium 4.0 Chloride 102 Carbon Dioxide 29 Anion Gap 9 BUN 11 Creatinine 0.65 Est GFR ( Amer) > 60 Est GFR (Non-Af Amer) > 60 Glucose 209 H Lactic Acid 1.3 Calcium 8.9 Magnesium 1.8 Triglycerides 259 H Cholesterol 107.72 LDL Cholesterol Direct 74 VLDL Cholesterol 51.8 H HDL Cholesterol 18 L TSH Urine Color Urine Appearance Urine pH Ur Specific [place] Urine Protein Urine Glucose (UA) Urine Ketones Urine Blood Urine Nitrite Ur Leukocyte Esterase Urine WBC (Auto) Urine RBC (Auto) 05/23/18 04:43 WBC RBC Hgb Hct MCV MCH MCHC RDW Plt Count Seg Neutrophils % Lymphocytes % Monocytes % Eosinophils % Basophils % Absolute Neutrophils Absolute Lymphocytes Absolute Monocytes Absolute Eosinophils Absolute Basophils Sodium Potassium Chloride Carbon Dioxide Anion Gap BUN Creatinine Est GFR ( Amer) Est GFR (Non-Af Amer) Glucose Lactic Acid Calcium Magnesium Triglycerides Cholesterol LDL Cholesterol Direct VLDL Cholesterol HDL Cholesterol TSH 2.89 Urine Color Urine Appearance Urine pH Ur Specific [place] Urine Protein Urine Glucose (UA) Urine Ketones Urine Blood Urine Nitrite Ur Leukocyte Esterase Urine WBC (Auto) Urine RBC (Auto) Impressions: Chest X-Ray 05/22/18 00:25 IMPRESSION: No acute cardiopulmonary process copyright 2011 [employer]- All Rights Reserved Assessment & Plan - Diagnosis (1) SIRS (systemic inflammatory response syndrome) Is this a current diagnosis for this admission?: Yes Plan: With lactic acidosis, mild leukocytosis, minimal tachycardia and a possible urinary tract infection, SIRS criteria have been met. However this patient is very unlikely to have sepsis, so much so that at this point it can be affirmatively stated that sepsis has been ruled out. She will be treated with broad-spectrum antibiotics for her role urinary tract infection and serial lactic acid measurements will be obtained her vital signs will be observed and her overall clinical course will be monitored. Serial laboratory evaluations of her metabolic profile and CBC will be obtained. 05/22/2018-temperature today is 99.6. Patient is on Invanz. Lactic acid level came down to 2.2. We are going to continue to follow the CBC and chemistry. Cultures urine cultures are pending. Plan is to continue the present management. 05/23/2018 T-max is 99.5. Patient is on Invanz. Level is 1.3. WBC 7.4. Urine culture showing gram-negative rods. Plan is to continue the present management. (2) UTI (urinary tract infection) Qualifiers: Urinary tract infection type: acute pyelonephritis Qualified Code(s): N10 - Acute pyelonephritis Is this a current diagnosis for this admission?: Yes Plan: Patient was noted to have acute right CVA tenderness far greater than the left giving suspicion to a distinct possibility of an acute right pyelonephritis. Her urine does show significant pyuria based on her positive leukocyte esterase however a moderately positive blood chemical reaction is not necessarily indicative of hematuria. She will be treated with broad-spectrum antibiotics until urine culture results are available and spectrum of the antibiotic therapy can be narrowed as appropriate. 05/22/2018-on examination there is no right CVA tenderness. Urinalysis shows pyuria with positive leukocyte esterase. Cultures are pending. Patient is on broad-spectrum antibiotics. Is to continue the present management and wait for the urine cultures. 05/23/2018-urine culture showing gram-negative rods waiting for complete report patient is on Invanz plan is to continue the current management. (3) Diabetes mellitus type 2 in obese Is this a current diagnosis for this admission?: Yes Plan: Patient will be treated with her usual diabetic therapy with the addition of a sliding scale insulin coverage for hyperglycemia. Hemoglobin A1c will be obtained to assess the efficacy of the prior therapy and adjustments will be made as appropriate. 05/22/2018-started on insulin sliding scale. Blood sugars are 253 today. Patient is on metformin at home. We are going to hold metformin. Patient is also on Victoza. We are going to hold Victoza during this hospital stay. Hemoglobin A1c is pending. 05/23/2018 hemoglobin A1c is 8.7 patient's latest blood sugar is 208 she is on insulin sliding scale and also on Lantus 10 units twice daily I am going to increase the Lantus to 20 units twice a day. Besides weight loss and lifestyle modifications discussed with the patient. (4) HTN (hypertension) Qualifiers: Hypertension type: essential hypertension Qualified Code(s): I10 - Essential (primary) hypertension Is this a current diagnosis for this admission?: Yes Plan: Patient will be continued on her current antihypertensive regiment once her home meds have been established. Efficacy of this therapy will be assessed over hospital course with serial evaluations of her vital signs including blood pressure. 05/22/2018 blood pressure is 120/66. Plan for today is to discontinue IV fluids and restart on losartan. pT is on 50 mg of losartan daily at home. 05/23/2018 blood pressure today is 105/67 patient is asymptomatic. Patient is on losartan 50 mg p.o. daily. (5) Morbid obesity with BMI of 45.0-49.9, adult Is this a current diagnosis for this admission?: Yes Plan: 05/22/2018-diet exercise weight loss and lifestyle modifications are advised. Dietary consult was requested. BMI is more than 50. 05/23/2018-plan is to continue the present management dietary consult was requested. - Time Time Spent with patient: 15-24 minutes Medications reviewed and adjusted accordingly: Yes Anticipated discharge: Home
[2018-05-23] MEDS ORDERED: INSULIN GLARGINE,HUM.REC.ANLOG 1,000 UNIT/10 ML UNIT SUBCUT SCH ×2 (10:00→22:00)
[2018-05-23] MEDS ORDERED: (PENDING PHARMACY ID) (Liraglutide [Victoza 2-Pak] 0.6 MG) PO SCH (10:00)
[2018-05-23] MEDS: OMEGA-3 ACID ETHYL ESTERS 1 GM CAPSULE PO SCH ×2 (12:21→18:22)
[2018-05-23] MEDS: VENLAFAXINE HCL 75 MG CAP.SR.24H PO SCH (12:21)
[2018-05-23] MEDS: DOCUSATE SODIUM 100 MG CAPSULE PO SCH ×2 (12:22→18:16)
[2018-05-23] MEDS: FAMOTIDINE 20 MG TABLET PO SCH ×2 (12:22→21:33)
[2018-05-23] MEDS: ONDANSETRON 4 MG TAB.RAPDIS PO PRN ×2 (15:44→21:33)
[2018-05-23] MEDS: ACETAMINOPHEN 325 MG TABLET PO PRN (15:46)
[2018-05-23] MEDS: ASPIRIN 81 MG TABLET, ENT COATED PO SCH (21:28)
[2018-05-23] MEDS: CYCLOBENZAPRINE HCL 10 MG TABLET PO SCH (21:29)
[2018-05-23] MEDS: MELATONIN 5 MG TABLET PO SCH (22:40)
[2018-05-24] MEDS: MORPHINE SULFATE 10 MG/ML INJ IV PRN ×5 (00:12→22:55)
[2018-05-24 04:50] LABS: ABSOLUTE BASOPHILS # (AUTO) 0.1 10^3/uL (0.0-0.2); ABSOLUTE EOSINOPHILS # (AUTO) 0.2 10^3/uL (0.0-0.6); ABSOLUTE LYMPHOCYTES (AUTO) 2.2 10^3/uL (0.5-4.7); ABSOLUTE MONOCYTES (AUTO) 0.5 10^3/uL (0.1-1.4); ABSOLUTE NEUT (AUTO) 2.8 10^3/uL (1.7-8.2); BASOPHILS % (AUTO) 1.1 % (0-2); HEMATOCRIT 32.4 % (36.0-47.0); HEMOGLOBIN 10.8 g/dL (12.0-15.5); LYMPHOCYTES % (AUTO) 37.4 % (13-45); MEAN CORPUSCULAR HEMOGLOBIN 28.4 pg (27.0-33.4); MEAN CORPUSCULAR HGB CONC 33.4 g/dL (32.0-36.0); MEAN CORPUSCULAR VOLUME 85 fl (80-97); MONOCYTES % (AUTO) 8.8 % (3-13); PLATELET COUNT 289 10^3/uL (150-450); RED BLOOD COUNT 3.81 10^6/uL (3.72-5.28); RED CELL DISTRIBUTION WIDTH 13.8 % (11.5-14.0); SEGMENTED NEUTROPHILS % (AUTO) 48.7 % (42-78); TOTAL CELLS COUNTED % (AUTO) 100 %; WHITE BLOOD COUNT 5.8 10^3/uL (4.0-10.5)
[2018-05-24 05:17] LABS: ANION GAP 13 (5-19); BLOOD UREA NITROGEN 15 mg/dL (7-20); CALCIUM 9.1 mg/dL (8.4-10.2); CARBON DIOXIDE 26 mmol/L (22-30); CHLORIDE 101 mmol/L (98-107); GLUCOSE 185 mg/dL (75-110); POTASSIUM 4.2 mmol/L (3.6-5.0); SODIUM 139.8 mmol/L (137-145)
[2018-05-24] MEDS: ERTAPENEM SODIUM 1 GM in NORMAL SALINE 50 ML IV SCH (06:02)
[2018-05-24] MEDS: BUPROPION HCL 100 MG TABLET PO SCH ×3 (06:06→21:58)
[2018-05-24] MEDS: GABAPENTIN 400 MG CAPSULE PO SCH ×3 (06:06→21:58)
[2018-05-24] MEDS: HEPARIN SOD (PORCINE) 5,000 UNIT/ML 1 ML SYRINGE SUBCUT SCH ×3 (06:06→21:59)
--- NOTE | 2018-05-24 08:35 | PDOC PROGRESS REPORT ---
Subjective Progress Note for:: 05/24/18 Subjective:: 53-year-old female admitted for fever and chills initially lactic acid was high 4.0 improved to 2.2 today at the time of admission she is also have a subjective fever tachycardia with heart rate of 105 elevated lactic acid levels meeting the criteria for Sirs. No acute events in the last 24 hours. T-max is 99.6. 05/23/2018-no acute events in the last 24 hours. Urine culture showing gram- negative rods. T-max is 99.5. Has any complaints. Comfortable in the bed. 05/24/2018 no acute events in the last 24 hours. Patient's denies any complaints. She is afebrile. Reason For Visit: SIRS SYNDROME WITH PROBABLE URINARY TRACT Physical Exam Vital Signs: Temp Pulse Resp BP Pulse Ox 98.5 F 88 16 101/55 L 97 05/24/18 03:52 05/24/18 07:00 05/24/18 03:52 05/24/18 03:52 05/24/18 03:52 Intake & Output 05/23/18 05/24/18 05/25/18 06:59 06:59 06:59 Intake Total 941 2280 50 Balance 941 2280 50 Weight 123.2 kg 123.6 kg General appearance: PRESENT: other - Morbidly obese female not in distress. Head exam: PRESENT: atraumatic Eye exam: PRESENT: PERRLA Neck exam: ABSENT: carotid bruit, JVD, lymphadenopathy, thyromegaly Respiratory exam: PRESENT: clear to auscultation radha. ABSENT: rales, rhonchi, wheezes Cardiovascular exam: PRESENT: RRR. ABSENT: diastolic murmur, rubs, systolic murmur GI/Abdominal exam: PRESENT: normal bowel sounds, soft. ABSENT: tenderness Neurological exam: PRESENT: alert, awake, oriented to person, oriented to place, oriented to time, oriented to situation, CN II-XII grossly intact. ABSENT: motor sensory deficit Psychiatric exam: PRESENT: appropriate affect, normal mood. ABSENT: homicidal ideation, suicidal ideation Results Laboratory Results: 05/24/18 04:21 05/24/18 04:21 05/22/18 05/24/18 05/24/18 00:30 04:21 04:21 WBC 5.8 RBC 3.81 Hgb 10.8 L Hct 32.4 L MCV 85 MCH 28.4 MCHC 33.4 RDW 13.8 Plt Count 289 Seg Neutrophils % 48.7 Lymphocytes % 37.4 Monocytes % 8.8 Eosinophils % 4.0 Basophils % 1.1 Absolute Neutrophils 2.8 Absolute Lymphocytes 2.2 Absolute Monocytes 0.5 Absolute Eosinophils 0.2 Absolute Basophils 0.1 Sodium 139.8 Potassium 4.2 Chloride 101 Carbon Dioxide 26 Anion Gap 13 BUN 15 Creatinine 0.69 Est GFR ( Amer) > 60 Est GFR (Non-Af Amer) > 60 Glucose 185 H Calcium 9.1 Magnesium 1.8 Urine Color YELLOW Urine Appearance SLIGHTLY-CLOUDY Urine pH 6.0 Ur Specific [place] 1.012 Urine Protein NEGATIVE Urine Glucose (UA) >=500 H Urine Ketones NEGATIVE Urine Blood MODERATE H Urine Nitrite NEGATIVE Ur Leukocyte Esterase LARGE H Urine WBC (Auto) 145 Urine RBC (Auto) 19 05/22/18 00:30 Clean Catch Midstream Urine Culture - Final Escherichia Coli Impressions: Chest X-Ray 05/22/18 00:25 IMPRESSION: No acute cardiopulmonary process copyright 2011 [employer]- All Rights Reserved Assessment & Plan - Diagnosis (1) SIRS (systemic inflammatory response syndrome) Is this a current diagnosis for this admission?: Yes Plan: With lactic acidosis, mild leukocytosis, minimal tachycardia and a possible urinary tract infection, SIRS criteria have been met. However this patient is very unlikely to have sepsis, so much so that at this point it can be affirmatively stated that sepsis has been ruled out. She will be treated with broad-spectrum antibiotics for her role urinary tract infection and serial lactic acid measurements will be obtained her vital signs will be observed and her overall clinical course will be monitored. Serial laboratory evaluations of her metabolic profile and CBC will be obtained. 05/22/2018-temperature today is 99.6. Patient is on Invanz. Lactic acid level came down to 2.2. We are going to continue to follow the CBC and chemistry. Cultures urine cultures are pending. Plan is to continue the present management. 05/23/2018 T-max is 99.5. Patient is on Invanz. lactic acid Level is 1.3. WBC 7.4. Urine culture showing gram-negative rods. Plan is to continue the present management. 05/24/2018 T-max is 98.5. Urine culture came back positive for E. coli. Blood cultures positive for gram-negative rods. Patient is on Invanz. Lactic acid level is 1.3. Plan is to continue the current management. (2) UTI (urinary tract infection) Qualifiers: Urinary tract infection type: acute pyelonephritis Qualified Code(s): N10 - Acute pyelonephritis Is this a current diagnosis for this admission?: Yes Plan: Patient was noted to have acute right CVA tenderness far greater than the left giving suspicion to a distinct possibility of an acute right pyelonephritis. Her urine does show significant pyuria based on her positive leukocyte esterase however a moderately positive blood chemical reaction is not necessarily indicative of hematuria. She will be treated with broad-spectrum antibiotics until urine culture results are available and spectrum of the antibiotic therapy can be narrowed as appropriate. 05/22/2018-on examination there is no right CVA tenderness. Urinalysis shows pyuria with positive leukocyte esterase. Cultures are pending. Patient is on broad-spectrum antibiotics. Is to continue the present management and wait for the urine cultures. 05/23/2018-urine culture showing gram-negative rods waiting for complete report patient is on Invanz plan is to continue the current management. 05/24/2018 urine culture positive for E. coli and Invanz. And is to continue the present management. (3) Diabetes mellitus type 2 in obese Is this a current diagnosis for this admission?: Yes Plan: Patient will be treated with her usual diabetic therapy with the addition of a sliding scale insulin coverage for hyperglycemia. Hemoglobin A1c will be obtained to assess the efficacy of the prior therapy and adjustments will be made as appropriate. 05/22/2018-started on insulin sliding scale. Blood sugars are 253 today. Patient is on metformin at home. We are going to hold metformin. Patient is also on Victoza. We are going to hold Victoza during this hospital stay. Hemoglobin A1c is pending. 05/23/2018 hemoglobin A1c is 8.7 patient's latest blood sugar is 208 she is on insulin sliding scale and also on Lantus 10 units twice daily I am going to increase the Lantus to 20 units twice a day. Besides weight loss and lifestyle modifications discussed with the patient. 05/24/2018 hemoglobin A1c is 8.7 today's blood sugar is 202. Blood sugars are running more than 200s. I am going to increase the Lantus to 30 units twice a day. Dietary consult was requested. She is also interested in speaking to the dietitian. (4) HTN (hypertension) Qualifiers: Hypertension type: essential hypertension Qualified Code(s): I10 - Essential (primary) hypertension Is this a current diagnosis for this admission?: Yes Plan: Patient will be continued on her current antihypertensive regiment once her home meds have been established. Efficacy of this therapy will be assessed over hos pital course with serial evaluations of her vital signs including blood pressure. 05/22/2018 blood pressure is 120/66. Plan for today is to discontinue IV fluids and restart on losartan. pT is on 50 mg of losartan daily at home. 05/23/2018 blood pressure today is 105/67 patient is asymptomatic. Patient is on losartan 50 mg p.o. daily. 05 24 2018-blood pressure is 101/55 patient is asymptomatic. Rate is 82. He is on losartan 50 mg p.o. daily. Plan is to continue the present management. (5) Morbid obesity with BMI of 45.0-49.9, adult Is this a current diagnosis for this admission?: Yes Plan: 05/22/2018-diet exercise weight loss and lifestyle modifications are advised. Dietary consult was requested. BMI is more than 50. 05/23/2018-plan is to continue the present management dietary consult was requested. 05/24/2018-diet exercise weight loss and life style modifications were discussed. Dietitian consult was requested. - Time Time Spent with patient: 15-24 minutes Medications reviewed and adjusted accordingly: Yes Anticipated discharge: Home
[2018-05-24] MEDS: VENLAFAXINE HCL 75 MG CAP.SR.24H PO SCH (09:07)
[2018-05-24] MEDS: DOCUSATE SODIUM 100 MG CAPSULE PO SCH ×2 (09:25→18:30)
[2018-05-24] MEDS: LOSARTAN POTASSIUM 50 MG TABLET PO SCH (09:25)
[2018-05-24] MEDS: FENOFIBRATE NANOCRYSTALLIZED 145 MG TABLET PO SCH (09:25)
[2018-05-24] MEDS: LOSARTAN POTASSIUM 25 MG TABLET PO SCH (09:26)
[2018-05-24] MEDS: INSULIN GLARGINE,HUM.REC.ANLOG 1,000 UNIT/10 ML UNIT SUBCUT SCH ×2 (09:26→17:20)
[2018-05-24] MEDS: FAMOTIDINE 20 MG TABLET PO SCH ×2 (09:26→21:58)
[2018-05-24] MEDS: OMEGA-3 ACID ETHYL ESTERS 1 GM CAPSULE PO SCH ×2 (09:26→17:21)
[2018-05-24] MEDS: INSULIN REG, HUMAN 100 UNIT/ML 3 ML VIAL (PYX) SUBCUT PRN (12:55)
[2018-05-24] MEDS: ASPIRIN 81 MG TABLET, ENT COATED PO SCH (21:58)
[2018-05-24] MEDS: CYCLOBENZAPRINE HCL 10 MG TABLET PO SCH (21:58)
[2018-05-24] MEDS: MELATONIN 5 MG TABLET PO SCH (21:59)
[2018-05-25] MEDS: INSULIN REG, HUMAN 100 UNIT/ML 3 ML VIAL (PYX) SUBCUT PRN ×5 (01:26→23:16)
[2018-05-25] MEDS: MORPHINE SULFATE 10 MG/ML INJ IV PRN ×4 (03:23→23:15)
[2018-05-25] MEDS: BUPROPION HCL 100 MG TABLET PO SCH ×3 (05:29→21:21)
[2018-05-25] MEDS: GABAPENTIN 400 MG CAPSULE PO SCH ×3 (05:29→21:21)
[2018-05-25] MEDS: ERTAPENEM SODIUM 1 GM in NORMAL SALINE 50 ML IV SCH (05:29)
[2018-05-25] MEDS: HEPARIN SOD (PORCINE) 5,000 UNIT/ML 1 ML SYRINGE SUBCUT SCH ×3 (05:29→21:21)
[2018-05-25 07:19] LABS: ABSOLUTE BASOPHILS # (AUTO) 0.1 10^3/uL (0.0-0.2); ABSOLUTE EOSINOPHILS # (AUTO) 0.2 10^3/uL (0.0-0.6); ABSOLUTE LYMPHOCYTES (AUTO) 2.4 10^3/uL (0.5-4.7); ABSOLUTE MONOCYTES (AUTO) 0.5 10^3/uL (0.1-1.4); ABSOLUTE NEUT (AUTO) 2.4 10^3/uL (1.7-8.2); BASOPHILS % (AUTO) 1.4 % (0-2); EOSINOPHILS % (AUTO) 4.1 % (0-6); HEMATOCRIT 34.1 % (36.0-47.0); HEMOGLOBIN 11.4 g/dL (12.0-15.5); LYMPHOCYTES % (AUTO) 42.6 % (13-45); MEAN CORPUSCULAR HEMOGLOBIN 28.4 pg (27.0-33.4); MEAN CORPUSCULAR HGB CONC 33.3 g/dL (32.0-36.0); MEAN CORPUSCULAR VOLUME 86 fl (80-97); MONOCYTES % (AUTO) 8.7 % (3-13); PLATELET COUNT 294 10^3/uL (150-450); RED BLOOD COUNT 3.99 10^6/uL (3.72-5.28); RED CELL DISTRIBUTION WIDTH 13.3 % (11.5-14.0); SEGMENTED NEUTROPHILS % (AUTO) 43.2 % (42-78); TOTAL CELLS COUNTED % (AUTO) 100 %; WHITE BLOOD COUNT 5.6 10^3/uL (4.0-10.5)
[2018-05-25 07:36] LABS: CARBON DIOXIDE 26 mmol/L (22-30); CHLORIDE 102 mmol/L (98-107); GLUCOSE 190 mg/dL (75-110); POTASSIUM 4.1 mmol/L (3.6-5.0)
[2018-05-25 07:38] LABS: ANION GAP 12 (5-19); BLOOD UREA NITROGEN 16 mg/dL (7-20); CALCIUM 9.4 mg/dL (8.4-10.2)
[2018-05-25] MEDS ORDERED: DEXTROSE 40% GEL 15 GM TUBE PO PRN ×6 (08:41→09:01)
[2018-05-25] MEDS ORDERED: DEXTROSE 50%-WATER 25 GM/50 ML DISP.SYRIN IV PRN ×6 (08:41→09:01)
[2018-05-25] MEDS ORDERED: GLUCAGON,HUMAN RECOMB 1 MG INJ IM PRN ×3 (08:41→09:01)
[2018-05-25] MEDS: FENOFIBRATE NANOCRYSTALLIZED 145 MG TABLET PO SCH (08:45)
--- NOTE | 2018-05-25 08:46 | PDOC PROGRESS REPORT ---
Subjective Progress Note for:: 05/25/18 Subjective:: 53-year-old female admitted for fever and chills initially lactic acid was high 4.0 improved to 2.2 today at the time of admission she is also have a subjective fever tachycardia with heart rate of 105 elevated lactic acid levels meeting the criteria for Sirs. No acute events in the last 24 hours. T-max is 99.6. 05/23/2018-no acute events in the last 24 hours. Urine culture showing gram- negative rods. T-max is 99.5. Has any complaints. Comfortable in the bed. 05/24/2018 no acute events in the last 24 hours. Patient's denies any complaints. She is afebrile. 05/25/2018 no acute events in the last 24 hours. Patient is afebrile. Temperature is 98.2. Blood pressure is 120/64. Patient denies any complaints. Reason For Visit: SIRS SYNDROME WITH PROBABLE URINARY TRACT Physical Exam Vital Signs: Temp Pulse Resp BP Pulse Ox 98.2 F 93 16 120/64 93 05/25/18 08:25 05/25/18 08:25 05/25/18 08:25 05/25/18 08:25 05/25/18 08:25 Intake & Output 05/24/18 05/25/18 05/26/18 06:59 06:59 06:59 Intake Total 2280 1594 Balance 2280 1594 Weight 123.6 kg 125.4 kg General appearance: PRESENT: other - Morbidly obese female Head exam: PRESENT: atraumatic Eye exam: PRESENT: PERRLA Mouth exam: PRESENT: moist Neck exam: ABSENT: carotid bruit, JVD, lymphadenopathy, thyromegaly Respiratory exam: PRESENT: clear to auscultation radha. ABSENT: rales, rhonchi, wheezes Cardiovascular exam: PRESENT: RRR. ABSENT: diastolic murmur, rubs, systolic murmur GI/Abdominal exam: PRESENT: normal bowel sounds, soft. ABSENT: tenderness Extremities exam: PRESENT: full ROM. ABSENT: calf tenderness, clubbing, pedal e liborio Neurological exam: PRESENT: alert, awake, oriented to person, oriented to place, oriented to time, oriented to situation, CN II-XII grossly intact. ABSENT: motor sensory deficit Psychiatric exam: PRESENT: appropriate affect, normal mood. ABSENT: homicidal ideation, suicidal ideation Results Laboratory Results: 05/25/18 06:53 05/25/18 06:53 05/25/18 05/25/18 06:53 06:53 WBC 5.6 RBC 3.99 Hgb 11.4 L Hct 34.1 L MCV 86 MCH 28.4 MCHC 33.3 RDW 13.3 Plt Count 294 Seg Neutrophils % 43.2 Lymphocytes % 42.6 Monocytes % 8.7 Eosinophils % 4.1 Basophils % 1.4 Absolute Neutrophils 2.4 Absolute Lymphocytes 2.4 Absolute Monocytes 0.5 Absolute Eosinophils 0.2 Absolute Basophils 0.1 Sodium 140.0 Potassium 4.1 Chloride 102 Carbon Dioxide 26 Anion Gap 12 BUN 16 Creatinine 0.65 Est GFR ( Amer) > 60 Est GFR (Non-Af Amer) > 60 Glucose 190 H Calcium 9.4 Magnesium 1.8 05/22/18 00:30 Clean Catch Midstream Urine Culture - Final Escherichia Coli Impressions: Chest X-Ray 05/22/18 00:25 IMPRESSION: No acute cardiopulmonary process copyright 2011 [employer]- All Rights Reserved Assessment & Plan - Diagnosis (1) SIRS (systemic inflammatory response syndrome) Is this a current diagnosis for this admission?: Yes Plan: With lactic acidosis, mild leukocytosis, minimal tachycardia and a possible urinary tract infection, SIRS criteria have been met. However this patient is very unlikely to have sepsis, so much so that at this point it can be affirmatively stated that sepsis has been ruled out. She will be treated with broad-spectrum antibiotics for her role urinary tract infection and serial lactic acid measurements will be obtained her vital signs will be observed and her overall clinical course will be monitored. Serial laboratory evaluations of her metabolic profile and CBC will be obtained. 05/22/2018-temperature today is 99.6. Patient is on Invanz. Lactic acid level came down to 2.2. We are going to continue to follow the CBC and chemistry. Cultures urine cultures are pending. Plan is to continue the present management. 05/23/2018 T-max is 99.5. Patient is on Invanz. lactic acid Level is 1.3. WBC 7.4. Urine culture showing gram-negative rods. Plan is to continue the present management. 05/24/2018 T-max is 98.5. Urine culture came back positive for E. coli. Blood cultures positive for gram-negative rods. Patient is on Invanz. Lactic acid level is 1.3. Plan is to continue the current management. 05/25/2018 T-max is 98.2. Blood cultures showing gram-negative rods, urine culture is positive for E. coli. Patient is on Invanz. Latest lactic acid level is 1.3. Hypotension resolved. plan is to continue 1 more day of IV antibiotic therapy . Probably I am going to discharge her home tomorrow on p.o. antibiotics. (2) UTI (urinary tract infection) Qualifiers: Urinary tract infection type: acute pyelonephritis Qualified Code(s): N10 - Acute pyelonephritis Is this a current diagnosis for this admission?: Yes Plan: Patient was noted to have acute right CVA tenderness far greater than the left giving suspicion to a distinct possibility of an acute right pyelonephritis. Her urine does show significant pyuria based on her positive leukocyte esterase however a moderately positive blood chemical reaction is not necessarily indicative of hematuria. She will be treated with broad-spectrum antibiotics until urine culture results are available and spectrum of the antibiotic therapy can be narrowed as appropriate. 05/22/2018-on examination there is no right CVA tenderness. Urinalysis shows pyuria with positive leukocyte esterase. Cultures are pending. Patient is on broad-spectrum antibiotics. Is to continue the present management and wait for the urine cultures. 05/23/2018-urine culture showing gram-negative rods waiting for complete report patient is on Invanz plan is to continue the current management. 05/24/2018 urine culture positive for E. coli and Invanz. And is to continue the present management. 05/25/2018-urine culture came back positive for E. coli pansensitive patient is on Invanz. Patient is afebrile. Blood pressures are stable. (3) Diabetes mellitus type 2 in obese Is this a current diagnosis for this admission?: Yes Plan: Patient will be treated with her usual diabetic therapy with the addition of a sliding scale insulin coverage for hyperglycemia. Hemoglobin A1c will be obtained to assess the efficacy of the prior therapy and adjustments will be made as appropriate. 05/22/2018-started on insulin sliding scale. Blood sugars are 253 today. Patient is on metformin at home. We are going to hold metformin. Patient is also on Victoza. We are going to hold Victoza during this hospital stay. Hemoglobin A1c is pending. 05/23/2018 hemoglobin A1c is 8.7 patient's latest blood sugar is 208 she is on insulin sliding scale and also on Lantus 10 units twice daily I am going to increase the Lantus to 20 units twice a day. Besides weight loss and lifestyle modifications discussed with the patient. 05/24/2018 hemoglobin A1c is 8.7 today's blood sugar is 202. Blood sugars are running more than 200s. I am going to increase the Lantus to 30 units twice a day. Dietary consult was requested. She is also interested in speaking to the dietitian. 05/25/2018 patient's latest blood sugar is 190. Patient is on Lantus 30 units twice a day and insulin sliding scale. Patient is on Victoza, metformin thousand milligrams extended release twice a day at home. The toes on metformin is on hold. I increased the Lantus to 40 units twice a day today. I change the insulin sliding scale to before meals and at bedtime. Patient's hemoglobin A1c is 8.7. Diet exercise weight loss was advised. (4) HTN (hypertension) Qualifiers: Hypertension type: essential hypertension Qualified Code(s): I10 - Essential (primary) hypertension Is this a current diagnosis for this admission?: Yes Plan: Patient will be continued on her current antihypertensive regiment once her home meds have been established. Efficacy of this therapy will be assessed over hospital course with serial evaluations of her vital signs including blood pressure. 05/22/2018 blood pressure is 120/66. Plan for today is to discontinue IV fluids and restart on losartan. pT is on 50 mg of losartan daily at home. 05/23/2018 blood pressure today is 105/67 patient is asymptomatic. Patient is on losartan 50 mg p.o. daily. 05 24 2018-blood pressure is 101/55 patient is asymptomatic. Rate is 82. He is on losartan 50 mg p.o. daily. Plan is to continue the present management. 05/25/2018-patient blood pressure is 120/64. Patient is on losartan 25 mg p.o. daily. Is to continue the present management. (5) Morbid obesity with BMI of 45.0-49.9, adult Is this a current diagnosis for this admission?: Yes Plan: 05/22/2018-diet exercise weight loss and lifestyle modifications are advised. Dietary consult was requested. BMI is more than 50. 05/23/2018-plan is to continue the present management dietary consult was requested. 05/24/2018-diet exercise weight loss and life style modifications were discussed. Dietitian consult was requested. 05/25/2018-patient's BMI is more than 45 diet exercise weight loss was advised we are going to provide portable oxygen to the patient so she can walk around in the hallway. - Time Time Spent with patient: 15-24 minutes Medications reviewed and adjusted accordingly: Yes Anticipated discharge: Home
[2018-05-25] MEDS: VENLAFAXINE HCL 75 MG CAP.SR.24H PO SCH (09:27)
[2018-05-25] MEDS: LOSARTAN POTASSIUM 25 MG TABLET PO SCH (09:27)
[2018-05-25] MEDS: FAMOTIDINE 20 MG TABLET PO SCH ×2 (09:27→21:21)
[2018-05-25] MEDS: DOCUSATE SODIUM 100 MG CAPSULE PO SCH ×2 (09:27→17:19)
[2018-05-25] MEDS: OMEGA-3 ACID ETHYL ESTERS 1 GM CAPSULE PO SCH ×2 (09:27→17:24)
[2018-05-25] MEDS ORDERED: INSULIN GLARGINE,HUM.REC.ANLOG 1,000 UNIT/10 ML UNIT SUBCUT SCH (10:00)
[2018-05-25] MEDS: INSULIN GLARGINE,HUM.REC.ANLOG 1,000 UNIT/10 ML UNIT SUBCUT SCH (17:24)
[2018-05-25] MEDS: CYCLOBENZAPRINE HCL 10 MG TABLET PO SCH (21:21)
[2018-05-25] MEDS: MELATONIN 5 MG TABLET PO SCH (21:21)
[2018-05-25] MEDS: ASPIRIN 81 MG TABLET, ENT COATED PO SCH (21:21)
[2018-05-26] MEDS: MORPHINE SULFATE 10 MG/ML INJ IV PRN ×2 (04:04→08:51)
[2018-05-26 04:45] LABS: ABSOLUTE BASOPHILS # (AUTO) 0.1 10^3/uL (0.0-0.2); ABSOLUTE EOSINOPHILS # (AUTO) 0.3 10^3/uL (0.0-0.6); ABSOLUTE LYMPHOCYTES (AUTO) 2.6 10^3/uL (0.5-4.7); ABSOLUTE MONOCYTES (AUTO) 0.5 10^3/uL (0.1-1.4); ABSOLUTE NEUT (AUTO) 2.7 10^3/uL (1.7-8.2); BASOPHILS % (AUTO) 1.4 % (0-2); EOSINOPHILS % (AUTO) 4.2 % (0-6); HEMATOCRIT 34.3 % (36.0-47.0); HEMOGLOBIN 11.3 g/dL (12.0-15.5); LYMPHOCYTES % (AUTO) 41.9 % (13-45); MEAN CORPUSCULAR HEMOGLOBIN 28.2 pg (27.0-33.4); MEAN CORPUSCULAR HGB CONC 32.9 g/dL (32.0-36.0); MEAN CORPUSCULAR VOLUME 86 fl (80-97); MONOCYTES % (AUTO) 8.8 % (3-13); PLATELET COUNT 317 10^3/uL (150-450); RED CELL DISTRIBUTION WIDTH 13.7 % (11.5-14.0); SEGMENTED NEUTROPHILS % (AUTO) 43.7 % (42-78); TOTAL CELLS COUNTED % (AUTO) 100 %; WHITE BLOOD COUNT 6.2 10^3/uL (4.0-10.5)
[2018-05-26] MEDS: BUPROPION HCL 100 MG TABLET PO SCH (05:04)
[2018-05-26] MEDS: GABAPENTIN 400 MG CAPSULE PO SCH (05:04)
[2018-05-26] MEDS: HEPARIN SOD (PORCINE) 5,000 UNIT/ML 1 ML SYRINGE SUBCUT SCH (05:04)
[2018-05-26] MEDS: ERTAPENEM SODIUM 1 GM in NORMAL SALINE 50 ML IV SCH (05:04)
[2018-05-26 05:05] LABS: ALANINE AMINOTRANSFERASE 29 U/L (9-52); ALKALINE PHOSPHATASE 73 U/L (38-126); ANION GAP 10 (5-19); ASPARTATE AMINO TRANSFERASE 67 U/L (14-36); BILIRUBIN,DIRECT 0.3 mg/dL (0.0-0.4); BILIRUBIN,TOTAL 0.3 mg/dL (0.2-1.3); BLOOD UREA NITROGEN 16 mg/dL (7-20); CALCIUM 9.4 mg/dL (8.4-10.2); CARBON DIOXIDE 27 mmol/L (22-30); CHLORIDE 103 mmol/L (98-107); GLUCOSE 193 mg/dL (75-110); POTASSIUM 4.1 mmol/L (3.6-5.0); SODIUM 140.3 mmol/L (137-145); TOTAL PROTEIN 7.2 g/dL (6.3-8.2)
[2018-05-26 08:43] VITALS: BP 102/54
[2018-05-26] MEDS: INSULIN REG, HUMAN 100 UNIT/ML 3 ML VIAL (PYX) SUBCUT PRN (08:45)
[2018-05-26] MEDS: FENOFIBRATE NANOCRYSTALLIZED 145 MG TABLET PO SCH (08:45)
[2018-05-26] MEDS: DOCUSATE SODIUM 100 MG CAPSULE PO SCH (09:07)
[2018-05-26] MEDS: VENLAFAXINE HCL 75 MG CAP.SR.24H PO SCH (09:14)
[2018-05-26] MEDS: OMEGA-3 ACID ETHYL ESTERS 1 GM CAPSULE PO SCH (09:14)
[2018-05-26] MEDS: FAMOTIDINE 20 MG TABLET PO SCH (09:14)
[2018-05-26] MEDS: LOSARTAN POTASSIUM 25 MG TABLET PO SCH (09:14)
[2018-05-26] MEDS: INSULIN GLARGINE,HUM.REC.ANLOG 1,000 UNIT/10 ML UNIT SUBCUT SCH (09:15)
--- NOTE | 2018-05-26 14:43 | PDOC DISCHARGE SUMMARY ---
General - Admit/Disc Date/PCP Admission Date/Primary Care Provider: 05/22/18 01:47 Discharge Date: 05/26/18 - Discharge Diagnosis (1) SIRS (systemic inflammatory response syndrome) Is this a current diagnosis for this admission?: Yes Summary: With lactic acidosis, mild leukocytosis, minimal tachycardia and a possible urinary tract infection, SIRS criteria have been met. However this patient is very unlikely to have sepsis, so much so that at this point it can be affirmatively stated that sepsis has been ruled out. She will be treated with broad-spectrum antibiotics for her role urinary tract infection and serial lactic acid measurements will be obtained her vital signs will be observed and her overall clinical course will be monitored. Serial laboratory evaluations of her metabolic profile and CBC will be obtained. 05/22/2018-temperature today is 99.6. Patient is on Invanz. Lactic acid level came down to 2.2. We are going to continue to follow the CBC and chemistry. Cultures urine cultures are pending. Plan is to continue the present management. 05/23/2018 T-max is 99.5. Patient is on Invanz. lactic acid Level is 1.3. WBC 7.4. Urine culture showing gram-negative rods. Plan is to continue the present management. 05/24/2018 T-max is 98.5. Urine culture came back positive for E. coli. Blood cultures positive for gram-negative rods. Patient is on Invanz. Lactic acid level is 1.3. Plan is to continue the current management. 05/25/2018 T-max is 98.2. Blood cultures showing gram-negative rods, urine culture is positive for E. coli. Patient is on Invanz. Latest lactic acid level is 1.3. Hypotension resolved. plan is to continue 1 more day of IV antibiotic therapy . Probably I am going to discharge her home tomorrow on p.o. antibiotics. 05/26/2018-patient was admitted for sepsis. Urine culture came back positive for E. coli pansensitive and blood cultures are positive for gram-negative rods she was treated with Invanz IV she is afebrile for the last 48 hours has started her on levofloxacin 500 mg p.o. daily for 1 week she is going to go home today with p.o. antibiotics. (2) UTI (urinary tract infection) Is this a current diagnosis for this admission?: Yes Summary: Patient was noted to have acute right CVA tenderness far greater than the left giving suspicion to a distinct possibility of an acute right pyelonephritis. Her urine does show significant pyuria based on her positive leukocyte esterase however a moderately positive blood chemical reaction is not necessarily indicative of hematuria. She will be treated with broad-spectrum antibiotics until urine culture results are available and spectrum of the antibiotic therapy can be narrowed as appropriate. 05/22/2018-on examination there is no right CVA tenderness. Urinalysis shows pyuria with positive leukocyte esterase. Cultures are pending. Patient is on broad-spectrum antibiotics. Is to continue the present management and wait for the urine cultures. 05/23/2018-urine culture showing gram-negative rods waiting for complete report patient is on Invanz plan is to continue the current management. 05/24/2018 urine culture positive for E. coli and Invanz. And is to continue th e present management. 05/25/2018-urine culture came back positive for E. coli pansensitive patient is on Invanz. Patient is afebrile. Blood pressures are stable. 05/26/2018 urine culture came back positive for E. coli patient was on Invanz she is going home on levofloxacin 500 mg p.o. daily for 1 week. (3) Diabetes mellitus type 2 in obese Is this a current diagnosis for this admission?: Yes Summary: Patient will be treated with her usual diabetic therapy with the addition of a sliding scale insulin coverage for hyperglycemia. Hemoglobin A1c will be obtained to assess the efficacy of the prior therapy and adjustments will be made as appropriate. 05/22/2018-started on insulin sliding scale. Blood sugars are 253 today. Patient is on metformin at home. We are going to hold metformin. Patient is also on Victoza. We are going to hold Victoza during this hospital stay. Hemoglobin A1c is pending. 05/23/2018 hemoglobin A1c is 8.7 patient's latest blood sugar is 208 she is on insulin sliding scale and also on Lantus 10 units twice daily I am going to increase the Lantus to 20 units twice a day. Besides weight loss and lifestyle modifications discussed with the patient. 05/24/2018 hemoglobin A1c is 8.7 today's blood sugar is 202. Blood sugars are running more than 200s. I am going to increase the Lantus to 30 units twice a day. Dietary consult was requested. She is also interested in speaking to the dietitian. 05/25/2018 patient's latest blood sugar is 190. Patient is on Lantus 30 units twice a day and insulin sliding scale. Patient is on Victoza, metformin thousand milligrams extended release twice a day at home. The toes on metformin is on hold. I increased the Lantus to 40 units twice a day today. I change the insulin sliding scale to before meals and at bedtime. Patient's hemoglobin A1c is 8.7. Diet exercise weight loss was advised. 05/26/2018-patient blood sugar today is 193. Patient's hemoglobin A1c is 8.7. Patient was on Victoza and metformin at home advised her to continue the home medications when she is discharged. Diet exercise weight loss was advised. (4) HTN (hypertension) Is this a current diagnosis for this admission?: Yes Summary: Patient will be continued on her current antihypertensive regiment once her home meds have been established. Efficacy of this therapy will be assessed over hospital course with serial evaluations of her vital signs including blood pressure. 05/22/2018 blood pressure is 120/66. Plan for today is to discontinue IV fluids and restart on losartan. pT is on 50 mg of losartan daily at home. 05/23/2018 blood pressure today is 105/67 patient is asymptomatic. Patient is on losartan 50 mg p.o. daily. 05 24 2018-blood pressure is 101/55 patient is asymptomatic. Rate is 82. He is on losartan 50 mg p.o. daily. Plan is to continue the present management. 05/25/2018-patient blood pressure is 120/64. Patient is on losartan 25 mg p.o. daily. Is to continue the present management. 05/26/2018-patient blood pressure is 122/70. Patient is on losartan 25 mg p.o. twice daily patient was advised to continue the medication when she goes home. (5) Morbid obesity with BMI of 45.0-49.9, adult Is this a current diagnosis for this admission?: Yes Summary: 05/22/2018-diet exercise weight loss and lifestyle modifications are advised. Dietary consult was requested. BMI is more than 50. 05/23/2018-plan is to continue the present management dietary consult was requested. 05/24/2018-diet exercise weight loss and life style modifications were discussed. Dietitian consult was requested. 05/25/2018-patient's BMI is more than 45 diet exercise weight loss was advised we are going to provide portable oxygen to the patient so she can walk around in the hallway. 05/26/2018 patient's BMI is more than 45 diet exercise weight loss was advised on dietary consult was done while she was in the hospital. - Additional Information Resuscitation Status: Full Code Discharge Diet: As Tolerated, Diabetic Discharge Activity: Activity As Tolerated Prescriptions: Levofloxacin [Levaquin 500 mg Tablet] 500 mg PO DAILY #10 tablet Oxycodone HCl/Acetaminophen [Percocet 10-325 Mg Tablet] 1 each PO Q6HP PRN #20 tablet PRN Reason: Home Medications: Aspirin [Ecotrin 81 mg EC Tablet] 81 mg PO QHS 05/22/18 Bupropion HCl [Wellbutrin Xl 300mg 24hr Tablet] 300 mg PO DAILY 05/22/18 Cyclobenzaprine HCl [Flexeril 10 mg Tablet] 10 mg PO QHS 05/22/18 Fenofibrate 160 mg PO QAM 05/22/18 Gabapentin [Neurontin] 800 mg PO Q8 05/22/18 Liraglutide [Victoza 2-Jason] 0.6 mg PO DAILY 05/22/18 Losartan Potassium [Cozaar 50 mg Tablet] 50 mg PO QAM 05/22/18 Lovastatin [Mevacor] 20 mg PO QHS 05/22/18 Melatonin [Melatonin 5 mg Tablet] 10 mg PO QHS 05/22/18 Metformin HCl [Glucophage 500 mg Tablet] 1,000 mg PO BID 05/22/18 Methenamine Hippurate [Hiprex] 1 gm PO BID 05/22/18 Hollis-3 Fatty Acids/Fish Oil [Fish Oil 1,000 mg Capsule] 2 cap PO BID 05/22/18 Quetiapine Fumarate [Seroquel] 400 mg PO QHS 05/22/18 Venlafaxine HCl ER [Effexor Xr 75 mg Cap.sr] 150 mg PO DAILY 05/22/18 Levofloxacin [Levaquin 500 mg Tablet] 500 mg PO DAILY #10 tablet 05/26/18 Morphine Sulfate [Morphine 10 mg/ml Inj] 1 mg IV Q4HP PRN vial 05/26/18 Oxycodone HCl/Acetaminophen [Percocet 10-325 Mg Tablet] 1 each PO Q6HP PRN #20 tablet 05/26/18 History of Present Illness History of Present Illness: MIGUELITO LOVETT is a 53 year old female a 53 year old female who presents the emergency room with a 1 day history of fever with chills associated with lower back pain. Subjective fever with chills has been severe and the lumbar (vague, nonradiating, bilateral right possibly worse than left) pressure-like pain which she rates as very severe. Both the pain and fever have been present since their onset on the day prior to admi ssion. The symptoms began as a backache and low-grade fever in the early afternoon and progressively worsened gradually throughout the evening until she came to the emergency room. She admits numerous prior similar episodes some of which have required hospitalization and treatment for "sepsis", these usually occur with urinary tract or respiratory tract infections. She has not identified any aggravating or ameliorating factors for her fever or back pain. In the emergency room she was found to have a normal white count and be afebrile. Her urinalysis was suspect for a urinary tract infection and she was about to be discharged home when her serum lactic acid was reported is 4.0. The patient was then admitted to the hospital to be evaluated for possible sepsis at the insistence of the emergency room physician. Physical Exam Vital Signs: Temp Pulse Resp BP Pulse Ox 98.2 F 83 16 102/54 L 94 05/26/18 11:37 05/26/18 11:37 05/26/18 11:37 05/26/18 11:37 05/26/18 11:37 Intake & Output 05/25/18 05/26/18 05/27/18 06:59 06:59 06:59 Intake Total 1594 1456 Balance 1594 1456 Weight 125.4 kg 124.2 kg General appearance: PRESENT: no acute distress Eye exam: PRESENT: PERRLA Mouth exam: PRESENT: moist Neck exam: ABSENT: carotid bruit, JVD, lymphadenopathy, thyromegaly Respiratory exam: PRESENT: clear to auscultation radha. ABSENT: rales, rhonchi, wheezes Cardiovascular exam: PRESENT: RRR. ABSENT: diastolic murmur, rubs, systolic murmur Pulses: PRESENT: normal dorsalis pedis pul Neurological exam: PRESENT: alert, awake, oriented to person, oriented to place, oriented to time, oriented to situation, CN II-XII grossly intact. ABSENT: motor sensory deficit Psychiatric exam: PRESENT: appropriate affect, normal mood. ABSENT: homicidal ideation, suicidal ideation Results Laboratory Results: 05/26/18 04:24 05/26/18 04:24 05/26/18 05/26/18 04:24 04:24 WBC 6.2 RBC 4.00 Hgb 11.3 L Hct 34.3 L MCV 86 MCH 28.2 MCHC 32.9 RDW 13.7 Plt Count 317 Seg Neutrophils % 43.7 Lymphocytes % 41.9 Monocytes % 8.8 Eosinophils % 4.2 Basophils % 1.4 Absolute Neutrophils 2.7 Absolute Lymphocytes 2.6 Absolute Monocytes 0.5 Absolute Eosinophils 0.3 Absolute Basophils 0.1 Sodium 140.3 Potassium 4.1 Chloride 103 Carbon Dioxide 27 Anion Gap 10 BUN 16 Creatinine 0.74 Est GFR ( Amer) > 60 Est GFR (Non-Af Amer) > 60 Glucose 193 H Calcium 9.4 Magnesium 1.9 Total Bilirubin 0.3 AST 67 H ALT 29 Alkaline Phosphatase 73 Total Protein 7.2 Albumin 4.0 Impressions: Chest X-Ray 05/22/18 00:25 IMPRESSION: No acute cardiopulmonary process copyright 2011 [employer]- All Rights Reserved Qualifiers - * PATIENT BEING DISCHARGED WITH ANY OF THE FOLLOWING DIAGNOSIS: No VTE patient discharged on overlapping Therapy?: Yes
== END 2018-05-26 12:24 | disposition home or self-care (01) | DRG 690 ==
LOC: ER 22:57 → EH 05-22 01:47 → 3W 05-22 03:19
PROVIDERS: ADMIT Emergency Medicine; ATTEND Emergency Medicine
DX: N10 Acute pyelonephritis (principal); Z68.42 Body mass index [BMI] 45.0-49.9, adult; B96.20 Unspecified Escherichia coli [E. coli] as the cause of diseases classified elsewhere; E11.9 Type 2 diabetes mellitus without complications; I10 Essential (primary) hypertension; E66.01 Morbid (severe) obesity due to excess calories; I25.10 Atherosclerotic heart disease of native coronary artery without angina pectoris; E78.00 Pure hypercholesterolemia, unspecified; J44.9 Chronic obstructive pulmonary disease, unspecified; I25.2 Old myocardial infarction; Z23 Encounter for immunization; Z79.84 Long term (current) use of oral hypoglycemic drugs; Z85.42 Personal history of malignant neoplasm of other parts of uterus; Z90.49 Acquired absence of other specified parts of digestive tract; Z90.710 Acquired absence of both cervix and uterus; Z87.891 Personal history of nicotine dependence; Z80.9 Family history of malignant neoplasm, unspecified; Z82.49 Family history of ischemic heart disease and other diseases of the circulatory system
CPT/HCPCS: 36415; 71045; 80048; 80053; 80061; 81001; 82803; 82962; 83036; 83605; 83735; 84439; 84443; 84481; 85025; 85610; 87040; 87077; 87086; 87088; 87186; 90686; 93005; 93010; 96361; 96374; 99291; J1335; J1644; J1815; J2270; J2543; J3480; J3490; J7030; J7120; S0119